=== PATIENT | female | born 1960 | race Caucasian/White ===

== ENCOUNTER 2020-06-15 06:04 | Day surgery (SDC) | payer BC ==
[2020-06-14 08:25] VITALS: BMI 19.1
[2020-06-15] MEDS ORDERED: AFRIN NASAL MIST 15 ML BOT ONE ×2 (06:23→06:33)
[2020-06-15] MEDS ORDERED: Fentanyl 100 MCG/2 ML VIAL ONE ×2 (06:29→08:30)
[2020-06-15] MEDS ORDERED: Lidocaine 1% w/Epinephrine 1:100K 20 ML VIAL ONE (06:33)
[2020-06-15] MEDS ORDERED: Bacitracin Zinc Ointment 30 gm TUBE ONE (06:33)
[2020-06-15] MEDS ORDERED: Ciprofloxacin 0.2% Otic (0.25ML CONTAINER) ONE (06:38)
[2020-06-15 06:41] LABS: Hemoglobin 14.6 g/dL (12.0-16.0)
[2020-06-15] MEDS ORDERED: SUGAMMADEX SODIUM 200 MG/2 ML VIAL ONE (07:28)
[2020-06-15] MEDS ORDERED: PROPOFOL 200 MG/20 ML VIAL ONE (09:09)
[2020-06-15] MEDS ORDERED: Lidocaine 1% PF 5 ML VIAL ONE (09:09)
[2020-06-15] MEDS ORDERED: Rocuronium Bromide 10 MG/ML (10ML VIAL) ONE (09:09)
[2020-06-15] MEDS ORDERED: Ondansetron PF 4 MG/2 ML Vial ONE (09:09)
== END 2020-06-15 10:39 | disposition home or self-care (01) ==
LOC: SDC 06:04
PROVIDERS: ATTEND Otolaryngology Plastic Surgery within the Head & Neck
PROC: 099Q8ZZ Drainage of Right Maxillary Sinus, Via Natural or Artificial Opening Endoscopic (ICD-10-PCS; principal; 2020-06-15)
PROC: 09QM8ZZ Repair Nasal Septum, Via Natural or Artificial Opening Endoscopic (ICD-10-PCS; principal; 2020-06-15)
PROC: 09BS8ZZ Excision of Right Frontal Sinus, Via Natural or Artificial Opening Endoscopic (ICD-10-PCS; principal; 2020-06-15)
PROC: 09BT8ZZ Excision of Left Frontal Sinus, Via Natural or Artificial Opening Endoscopic (ICD-10-PCS; principal; 2020-06-15)
PROC: 09BV8ZZ Excision of Left Ethmoid Sinus, Via Natural or Artificial Opening Endoscopic (ICD-10-PCS; principal; 2020-06-15)
PROC: 09BU8ZZ Excision of Right Ethmoid Sinus, Via Natural or Artificial Opening Endoscopic (ICD-10-PCS; principal; 2020-06-15)
PROC: 09BL8ZZ Excision of Nasal Turbinate, Via Natural or Artificial Opening Endoscopic (ICD-10-PCS; principal; 2020-06-15)
PROC: 099R8ZZ Drainage of Left Maxillary Sinus, Via Natural or Artificial Opening Endoscopic (ICD-10-PCS; principal; 2020-06-15)
DX: J34.89 Other specified disorders of nose and nasal sinuses (principal); J32.8 Other chronic sinusitis; J34.2 Deviated nasal septum; J34.3 Hypertrophy of nasal turbinates; S02.2XXA Fracture of nasal bones, initial encounter for closed fracture; H69.83 Other specified disorders of Eustachian tube, bilateral; H65.493 Other chronic nonsuppurative otitis media, bilateral; E03.9 Hypothyroidism, unspecified; F17.210 Nicotine dependence, cigarettes, uncomplicated; Z79.899 Other long term (current) drug therapy; Z88.0 Allergy status to penicillin; Z88.2 Allergy status to sulfonamides; Z88.5 Allergy status to narcotic agent
CPT/HCPCS: 36415; 85014; 85018; 93005; 93010; J2405; J2704; J3010